=== PATIENT | male | born 1990 | race Caucasian/White ===

== ENCOUNTER 2017-02-17 17:53 | Emergency (ER) | payer OTHER ==
--- NOTE | 2017-02-17 19:26 | EDM.PDOC ---
ED HPI GENERAL MEDICAL PROBLEM - General Chief Complaint: Bite:Animal, Insect Stated Complaint: BITE LT MIDDLE FINGER Time Seen by Provider: 02/17/17 19:20 Source of Information: Reports: Patient History Limitations: Reports: No Limitations - History of Present Illness INITIAL COMMENTS - FREE TEXT/NARRATIVE: HISTORY AND PHYSICAL: History of present illness: [Pt comes to the ER complaining of pain and swelling to a lesion on left middle finger. First noticed 5 days ago and started as 3 small lesions which gradually increased to 1 confluent lesion. He thinks this is a spider bite and requests treatment. He denies any known insect or spider bite. Denies fever and chills. No abdominal pain, nausea, vomiting. No chest pain, shortness of breath or difficulty breathing. Has 1 small lesion to the dorsum of his left middle finger. Current presentation is consistent with how the original wound started. Review of systems: As per history of present illness and below otherwise all systems reviewed and negative. Past medical history: As per history of present illness and as reviewed below otherwise noncontributory. Surgical history: As per history of present illness and as reviewed below otherwise noncontributory. Social history: No reported history of drug or alcohol abuse. Family history: As per history of present illness and as reviewed below otherwise noncontributory. Physical exam: HEENT: Atraumatic, normocephalic. Extremities: L medial middle finger shows a dime-sized vesicular lesion on erythematous base with yellow to white colored drainage inside. One small pinpoint lesion to the DIP joint of the dorsum of his left middle finger. No drainage. Is mildly tender with palpation. Neurovascular unremarkable. Neuro: Awake, alert, oriented. Motor and sensory unremarkable throughout. Exam nonfocal. Impression: [lesion to L middle finger] Plan: [Bactrim DS twice a day 10 days. Establish care and follow-up with PCP in 5-7 days for reevaluation. Return precautions are reviewed. Patient agreement with today's plan.] Definitive disposition and diagnosis as appropriate pending reevaluation and review of above. Left 3-Middle finger Pain Score (Numeric/FACES): 3 - Related Data Allergies Allergy/AdvReac Type Severity Reaction Status Date / Time No Known Allergies Allergy Verified 02/17/17 18:20 Home Meds: Home Meds Sulfamethoxazole/Trimethoprim [Bactrim Ds Tablet] 1 each PO BID #20 tablet 07/31 /17 [Rx] Past Medical History - Past Surgical History GI Surgical History: Reports: Appendectomy, Hernia, Abdominal Social & Family History - Tobacco Use Smoking Status *Q: Current Every Day Smoker Years of Tobacco use: 7 Packs/Tins Daily: 0.5 - Caffeine Use Caffeine Use: Reports: None - Alcohol Use Days Per Week of Alcohol Use: 1 Number of Drinks Per Day: 2 Total Drinks Per Week: 2 - Recreational Drug Use Recreational Drug Use: No ED ROS GENERAL - Review of Systems Review Of Systems: ROS reveals no pertinent complaints other than HPI. ED EXAM, ANIMAL BITE - Physical Exam Exam: See Below Course - Vital Signs Last Recorded V/S: Last Vital Signs Temp 97.4 F 02/17/17 18:21 Pulse 62 02/17/17 19:37 Resp 18 02/17/17 19:37 BP 117/58 L 02/17/17 19:37 Pulse Ox 97 02/17/17 19:37 Departure - Departure Time of Disposition: 19:30 Disposition: Home, Self-Care 01 Condition: Good Clinical Impression: Abscess of left middle finger - Discharge Information Prescriptions: Sulfamethoxazole/Trimethoprim [Bactrim Ds Tablet] 1 each PO BID #20 tablet Instructions: Abscess Referrals: PCP,None [Primary Care Provider] - Forms: ED Department Discharge Additional Instructions: The following information is given to patients seen in the emergency department who are being discharged to home. This information is to outline your options for follow-up care. We provide all patients seen in our emergency department with a follow-up referral. The need for follow-up, as well as the timing and circumstances, are variable depending upon the specifics of your emergency department visit. If you don't have a primary care physician on staff, we will provide you with a referral. We always advise you to contact your personal physician following an emergency department visit to inform them of the circumstance of the visit and for follow-up with them and/or the need for any referrals to a consulting specialist. The emergency department will also refer you to a specialist when appropriate. This referral assures that you have the opportunity for follow-up care with a specialist. All of these measure are taken in an effort to provide you with optimal care, which includes your follow-up. Under all circumstances we always encourage you to contact your private physician who remains a resource for coordinating your care. When calling for follow-up care, please make the office aware that this follow-up is from your recent emergency room visit. If for any reason you are refused follow-up, please contact the [facility] emergency department at and asked to speak to the emergency department charge nurse. [facility] [address] [place] [id number] Establish with a local primary care provider at the clinic listed above. Take antibiotics as prescribed. Return to ER as needed as discussed.
[2017-02-17 19:39] VITALS: BP 117/58
== END 2017-02-17 19:37 | disposition home or self-care (01) ==
LOC: MW.ED 17:53
DX: L02.512 Cutaneous abscess of left hand (principal); F17.210 Nicotine dependence, cigarettes, uncomplicated; Z90.49 Acquired absence of other specified parts of digestive tract
CPT/HCPCS: 99282

== ENCOUNTER 2017-12-28 11:58 | Emergency (ER) | payer OTHER ==
[2017-12-28] MEDS ORDERED: Diphtheria,Pertussis(Acell),Tetanus Vaccine 0.5 ML Syringe IM ONE (12:13)
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
[2017-12-28 13:58] VITALS: BP 119/86
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
== END 2017-12-28 14:00 | disposition home or self-care (01) ==
LOC: MW.ED 11:58
DX: S02.32XA Fracture of orbital floor, left side, initial encounter for closed fracture (principal); S02.40DA Maxillary fracture, left side, initial encounter for closed fracture; Z23 Encounter for immunization; Y04.0XXA Assault by unarmed brawl or fight, initial encounter
CPT/HCPCS: 70450; 70450-26; 70486; 70486-26; 90471; 90715; 99284-25

== ENCOUNTER 2018-01-02 06:48 | Day surgery (SDC) | payer OTHER ==
[~2018-01-02 06:48] MED LIST: Ondansetron 4 MG Tab.DIS PO PRN; Ondansetron 4 MG/2 ML SDV IVPUSH PRN
--- NOTE | 2018-01-02 07:18 | PCM.PREANE ---
Preanesthetic Assessment - Anesthesia/Transfusion/Family Hx Anesthesia History: Prior Anesthesia Without Reaction Family History of Anesthesia Reaction: No Transfusion History: No Prior Transfusion(s) Intubation History: Unknown - Review of Systems General: No Symptoms Pulmonary: No Symptoms Cardiovascular: No Symptoms Gastrointestinal: No Symptoms Neurological: No Symptoms Other: Reports: None - Physical Assessment O2 Sat by Pulse Oximetry: 99 Respiratory Rate: 16 Vital Signs: Last Vital Signs Temp 36.1 C 01/02/18 07:03 Pulse 52 L 01/02/18 07:03 Resp 16 01/02/18 07:03 BP 113/71 01/02/18 07:03 Pulse Ox 99 01/02/18 07:03 Height: 1.78 m Weight: 77.111 kg ASA Class: 2 Mental Status: Alert & Oriented x3 Airway Class: Mallampati = 2 Dentition: Reports: Normal Dentition Thyro-Mental Finger Breadths: 3 Mouth Opening Finger Breadths: 2 ROM/Head Extension: Full Lungs: Clear to Auscultation, Normal Respiratory Effort Cardiovascular: Regular Rate, Regular Rhythm - Allergies Allergies/Adverse Reactions: Allergies Allergy/AdvReac Type Severity Reaction Status Date / Time No Known Allergies Allergy Verified 01/02/18 07:09 - Blood Blood Available: No - Anesthesia Plan Pre-Op Medication Ordered: None - Acknowledgements Anesthesia Type Planned: General Anesthesia Pt an Appropriate Candidate for the Planned Anesthesia: Yes Alternatives and Risks of Anesthesia Discussed w Pt/Guardian: Yes Pt/Guardian Understands and Agrees with Anesthesia Plan: Yes PreAnesthesia Questionnaire Musculoskeletal History: Reports: Fracture Other Musculoskeletal History: left wrist Neurological History: Reports: Concussion - Past Surgical History Head Surgeries/Procedures: Reports: None GI Surgical History: Reports: Appendectomy, Hernia, Inguinal (bilateral) Musculoskeletal Surgical History: Reports: ORIF Other Musculoskeletal Surgeries/Procedures:: ORIF left wrist- has hardware - SUBSTANCE USE Smoking Status *Q: Current Every Day Smoker (down to 1/2 ppd) Tobacco Use Within Last Twelve Months: Cigarettes Recreational Drug Use History: No - HOME MEDS Home Medications: Home Meds Cephalexin [Keflex] 500 mg PO BID 12/31/17 [History] - CURRENT (IN HOUSE) MEDS Current Meds: Current Medications Hydrocodone Bitart/Acetaminophen ([place] 325-5 Mg) 1 tab PO Q4H PRN PRN Reason: Pain Bupivacaine HCl/Epinephrine Bitart (Marcaine 0.25%/Epinephrine 1:200,000) 10 ml INJECT ONETIME ONE Stop: 01/02/18 08:01 Cephalexin (Keflex) 500 mg PO Q6HR [facility] Cefazolin Sodium/Dextrose 2 gm (/ Premix) 50 mls @ 100 mls/hr IV ONETIME ONE Stop: 01/02/18 08:29 Lactated Ringer's (Ringers, Lactated) 1,000 mls @ 125 mls/hr IV ASDIRECTED [facility] Last Admin: 01/02/18 07:09 Dose: 125 mls/hr Ibuprofen (Motrin) 800 mg PO Q8H PRN PRN Reason: Pain Morphine Sulfate (Morphine) 2 mg IVPUSH Q2H PRN PRN Reason: Pain Ondansetron HCl (Zofran Odt) 4 mg PO Q6H PRN PRN Reason: Nausea/Vomiting Ondansetron HCl (Zofran) 4 mg IVPUSH Q6H PRN PRN Reason: Nausea/Vomiting
[2018-01-02] MEDS ORDERED: Midazolam 1 MG/ML 2 ML SDV ONE (07:21)
[2018-01-02] MEDS ORDERED: Lidocaine 2% 5 ML SDV ONE (07:21)
[2018-01-02] MEDS ORDERED: Propofol 200 MG/20 ML SDV ONE (07:21)
[2018-01-02] MEDS ORDERED: fentaNYL 250 MCG/5 ML SDV ONE (07:21)
[2018-01-02] MEDS ORDERED: fentaNYL 100 MCG/2 ML SDV ONE (07:21)
[2018-01-02] MEDS ORDERED: Dexamethasone/Tobramycin 0.1-0.3% Ophth Oint 3.5 GM Tube ONE (07:31)
[2018-01-02] MEDS ORDERED: HYDROmorphone 2 MG/ML SDV ONE (07:37)
[2018-01-02] MEDS ORDERED: Bupivacaine 25%/EPINEPHrine/PF 30 ML ONE (07:50)
[2018-01-02] MEDS ORDERED: ceFAZolin 2 GM in Premix Bag 1 BAG IV ONE (08:00)
[2018-01-02] MEDS ORDERED: Bupivacaine 0.25%/EPINEPHrine 1:200,000 10 ML SDV INJECT ONE (08:00)
[2018-01-02] MEDS ORDERED: Lactated Ringers 1,000 ML IV SCH (08:00)
[2018-01-02] MEDS ORDERED: Glycopyrrolate 0.2 MG/ML SDV ONE (09:05)
[2018-01-02] MEDS ORDERED: Ondansetron 4 MG/2 ML SDV ONE (09:05)
[2018-01-02] MEDS ORDERED: Sugammadex Sodium 200 MG/2 ML VIAL ONE ×2 (09:08)
[2018-01-02] MEDS ORDERED: HYDROmorphone 2 MG/ML SDV IVPUSH ONE (09:30)
[2018-01-02] MEDS: fentaNYL 100 MCG/2 ML SDV IVPUSH PRN ×2 (10:11→10:17)
--- NOTE | 2018-01-02 10:37 | PCM.POSTAN ---
POST ANESTHESIA ASSESSMENT - MENTAL STATUS Mental Status: Alert, Oriented - RESPIRATORY Respiratory Status: Respiratory Rate WNL, Airway Patent, O2 Saturation Stable - CARDIOVASCULAR CV Status: Pulse Rate WNL, Blood Pressure Stable - GASTROINTESTINAL GI Status: No Symptoms - PAIN Pain Score: 2 - POST OP HYDRATION Hydration Status: Adequate & Stable
[2018-01-02] MEDS: Morphine 2 MG/ML Syringe IVPUSH PRN ×4 (10:52→20:40)
[2018-01-02] MEDS ORDERED: Ibuprofen 800 MG Tab PO PRN (14:00)
[2018-01-02] MEDS: Acetaminophen/HYDROcodone 325-5 MG Tab PO PRN ×2 (14:51→22:48)
[2018-01-02] MEDS: Cephalexin 500 MG Cap PO SCH ×2 (14:51→18:29)
--- NOTE | 2018-01-02 15:54 | PCM.OPNOTE ---
- General Post-Op/Procedure Note Date of Surgery/Procedure: 01/02/18 Operative Procedure(s): plate fixation of left orbital floor fracture Pre Op Diagnosis: left orbital floor blowout fracture - closed Post-Op Diagnosis: Same Anesthesia Technique: General ET Tube, Local Primary Surgeon: Cleo Devine Complications: None Condition: Good Free Text/Narrative:: Intake & Output 01/01/18 01/02/18 01/02/18 23:59 07:59 15:59 Intake Total 1100 Balance 1100
--- NOTE | 2018-01-02 15:55 | PCM.SN ---
- Free Text/Narrative Note: Recheck on the floor after surgery this am. Tolerating diet and ambulating. Having some pain and would like morphine. Will see how he does overnight and getting pain under control. Anticipate home tomorrow.
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
[2018-01-03] MEDS: Cephalexin 500 MG Cap PO SCH ×2 (00:13→05:08)
[2018-01-03] MEDS: Morphine 2 MG/ML Syringe IVPUSH PRN (03:32)
[2018-01-03] MEDS: Acetaminophen/HYDROcodone 325-5 MG Tab PO PRN ×2 (05:08→09:30)
--- NOTE | 2018-01-03 08:12 | PCM.PN ---
- General Info Date of Service: 01/03/18 Admission Dx/Problem (Free Text): post op day 1 left orbital floor fracture. Subjective Update: doing well with pain. Some blurring of vision but clearing with drops. Minimal swelling for what was done. Functional Status: Reports: Pain Controlled, Tolerating Diet, Ambulating. Denies: New Symptoms - Review of Systems General: Reports: No Symptoms HEENT: Reports: Eye Pain (as expected) Pulmonary: Reports: No Symptoms Cardiovascular: Reports: No Symptoms Skin: Reports: Bruising (as expected) Psychiatric: Reports: No Symptoms - Patient Data Vitals - Most Recent: Last Vital Signs Temp 98.4 F 01/03/18 04:00 Pulse 62 01/03/18 04:00 Resp 20 01/03/18 04:00 BP 118/55 L 01/03/18 04:00 Pulse Ox 99 01/03/18 00:00 Weight - Most Recent: 170 lb I&O - Last 24 Hours: Intake & Output 01/02/18 01/03/18 01/03/18 23:59 07:59 15:59 Intake Total 1400 1000 Output Total 0 0 Balance 1400 1000 Med Orders - Current: Current Medications Hydrocodone Bitart/Acetaminophen ([place] 325-5 Mg) 1 tab PO Q4H PRN PRN Reason: Pain Last Admin: 01/03/18 05:08 Dose: 2 tab Cephalexin (Keflex) 500 mg PO Q6HR [facility] Last Admin: 01/03/18 05:08 Dose: 500 mg Fentanyl (Sublimaze) 50 mcg IVPUSH Q5M PRN PRN Reason: Pain (severe 7-10) Stop: 01/03/18 09:30 Last Admin: 01/02/18 10:17 Dose: 50 mcg Lactated Ringer's (Ringers, Lactated) 1,000 mls @ 125 mls/hr IV ASDIRECTED DEB Last Admin: 01/02/18 07:09 Dose: 125 mls/hr Ibuprofen (Motrin) 800 mg PO Q8H PRN PRN Reason: Pain Morphine Sulfate (Morphine) 2 mg IVPUSH Q2H PRN PRN Reason: Pain Last Admin: 01/03/18 03:32 Dose: 2 mg Ondansetron HCl (Zofran Odt) 4 mg PO Q6H PRN PRN Reason: Nausea/Vomiting Ondansetron HCl (Zofran) 4 mg IVPUSH Q6H PRN PRN Reason: Nausea/Vomiting Discontinued Medications Bupivacaine HCl/Epinephrine Bitart ([place] 0.25%/Epinephrine 1:200,000) 10 ml INJECT ONETIME ONE Stop: 01/02/18 08:01 Last Admin: 01/02/18 11:31 Dose: Not Given Fentanyl (Sublimaze) Confirm Administered Dose 100 mcg .ROUTE .STK-MED ONE Stop: 01/02/18 07:22 Fentanyl (Sublimaze) Confirm Administered Dose 250 mcg .ROUTE .STK-MED ONE Stop: 01/02/18 07:22 Glycopyrrolate (Robinul) Confirm Administered Dose 0.2 mg .ROUTE .STK-MED ONE Stop: 01/02/18 09:06 Hydromorphone HCl (Dilaudid) Confirm Administered Dose 2 mg .ROUTE .STK-MED ONE Stop: 01/02/18 07:38 Hydromorphone HCl (Dilaudid) 0 mg IVPUSH ONETIME ONE Stop: 01/02/18 09:31 Last Admin: 01/02/18 11:31 Dose: Not Given Cefazolin Sodium/Dextrose 2 gm (/ Premix) 50 mls @ 100 mls/hr IV ONETIME ONE Stop: 01/02/18 08:29 Last Admin: 01/02/18 11:30 Dose: Not Given Bupivacaine HCl/Epinephrine Bitart (Sensorc Mpf 0.25%-Epi [id number]) Confirm Administered Dose 30 mls @ as directed .ROUTE .STK-MED ONE Stop: 01/02/18 07:51 Lidocaine (Xylocaine-Mpf 2%) Confirm Administered Dose 10 ml .ROUTE .STK-MED ONE Stop: 01/02/18 07:22 Midazolam HCl (Versed 1 Mg/Ml) Confirm Administered Dose 2 mg .ROUTE .STK-MED ONE Stop: 01/02/18 07:22 Ondansetron HCl (Zofran) Confirm Administered Dose 8 mg .ROUTE .STK-MED ONE Stop: 01/02/18 09:06 Propofol (Diprivan 20 Ml) Confirm Administered Dose 400 mg .ROUTE .STK-MED ONE Stop: 01/02/18 07:22 Sugammadex Sodium ([place]) Confirm Administered Dose 200 mg .ROUTE .STK-MED ONE Stop: 01/02/18 09:09 Sugammadex Sodium ([place]) Confirm Administered Dose 200 mg .ROUTE .STK-MED ONE Stop: 01/02/18 09:09 Tobramycin/Dexamethasone (Tobradex Ophth Oint) Confirm Administered Dose 3.5 gm .ROUTE .STK-MED ONE Stop: 01/02/18 07:32 - Exam General: Alert, Oriented, Cooperative HEENT: Pupils Reactive, EOMI (no entrapment of musculature. Swelling with superior displacement of orbit as expected currently - more than yesterday as expected with swelling. ) Lungs: Normal Respiratory Effort Skin: Warm, Dry Wound/Incisions: Healing Well, No Drainage Neurological: No New Focal Deficit Psy/Mental Status: Alert, Normal Affect, Normal Mood - Problem List & Annotations (1) Orbital floor fracture SNOMED Code(s): 836878025 Code(s): S02.30XA - FRACTURE OF ORBITAL FLOOR, UNSPECIFIED SIDE, INIT Status: Acute Current Visit: No Qualifiers: Encounter type: initial encounter Fracture type: closed Laterality: left Qualified Code(s): S02.32XA - Fracture of orbital floor, left side, initial encounter for closed fracture - Problem List Review Problem List Initiated/Reviewed/Updated: Yes - My Orders Last 24 Hours: My Active Orders 01/02/18 08:00 Patient Status [ADT] Routine Acetaminophen/HYDROcodone [[place] 325-5 MG] 1 tab PO Q4H PRN Lactated Ringers [Ringers, Lactated] 1,000 ml IV ASDIRECTED 01/02/18 11:00 Morphine 2 mg IVPUSH Q2H PRN 01/02/18 14:00 Cephalexin [Keflex] 500 mg PO Q6HR Ibuprofen [Motrin] 800 mg PO Q8H PRN - Plan Plan:: home today on PO oxycodone. continue ibuprofen and tylenol tobradex for eye irritation saline drops as needed follow up in about 10 days, call sooner with any issues or concerns.
[2018-01-03 09:36] VITALS: BP 116/53
== END 2018-01-03 10:50 | disposition home or self-care (01) ==
LOC: MW.SDS 06:48 → MW.MS 10:03 → MW.SDS 01-03 10:50
PROVIDERS: ATTEND Plastic Surgery
DX: S02.32XA Fracture of orbital floor, left side, initial encounter for closed fracture (principal); F17.210 Nicotine dependence, cigarettes, uncomplicated; Z79.2 Long term (current) use of antibiotics; X58.XXXA Exposure to other specified factors, initial encounter
CPT/HCPCS: 21386; A9270; C1713; J1170; J2250; J2270; J2405; J3010; J3490; J7120; J2704

== ENCOUNTER 2018-11-27 10:48 | Day surgery (SDC) | payer OTHER ==
[~2018-11-27 10:48] MED LIST changes: +Acetaminophen/HYDROcodone 325-5 MG Tab PO PRN; +Bupivacaine 0.25%/EPINEPHrine 1:200,000 10 ML SDV INJECT ONE; +Lactated Ringers 1,000 ML IV SCH; +Midazolam 1 MG/ML 2 ML SDV ONE; -Ondansetron 4 MG Tab.DIS PO PRN; -Ondansetron 4 MG/2 ML SDV IVPUSH PRN; +Propofol 200 MG/20 ML SDV ONE; +ceFAZolin 2 GM in Premix Bag 1 BAG IV ONE; +fentaNYL 100 MCG/2 ML SDV ONE
--- NOTE | 2018-11-27 11:10 | PCM.PREANE ---
Preanesthetic Assessment - Anesthesia/Transfusion/Family Hx Anesthesia History: Prior Anesthesia Without Reaction Family History of Anesthesia Reaction: No Transfusion History: No Prior Transfusion(s) Intubation History: Unknown - Review of Systems General: No Symptoms Pulmonary: No Symptoms Cardiovascular: No Symptoms Gastrointestinal: No Symptoms Neurological: No Symptoms Other: Reports: None - Physical Assessment Height: 1.75 m Weight: 78.925 kg ASA Class: 2 Mental Status: Alert & Oriented x3 Airway Class: Mallampati = 1 Dentition: Reports: Normal Dentition Thyro-Mental Finger Breadths: 3 Mouth Opening Finger Breadths: 3 ROM/Head Extension: Full Lungs: Clear to Auscultation, Normal Respiratory Effort Cardiovascular: Regular Rate, Regular Rhythm - Allergies Allergies/Adverse Reactions: Allergies Allergy/AdvReac Type Severity Reaction Status Date / Time No Known Allergies Allergy Verified 11/24/18 11:26 - Blood Blood Available: No - Anesthesia Plan Pre-Op Medication Ordered: None - Acknowledgements Anesthesia Type Planned: MAC Pt an Appropriate Candidate for the Planned Anesthesia: Yes Alternatives and Risks of Anesthesia Discussed w Pt/Guardian: Yes Pt/Guardian Understands and Agrees with Anesthesia Plan: Yes PreAnesthesia Questionnaire HEENT History: Reports: Other (See Below) Other HEENT History: hx left orbital fx and jaw fx Cardiovascular History: Reports: None Respiratory History: Reports: None Gastrointestinal History: Reports: Hemorrhoids Genitourinary History: Reports: None Musculoskeletal History: Reports: Fracture Other Musculoskeletal History: left wrist, s/p ORIF left orbital fx 9 months ago Neurological History: Reports: Concussion Psychiatric History: Reports: None Endocrine/Metabolic History: Reports: None Hematologic History: Reports: None Immunologic History: Reports: None Oncologic (Cancer) History: Reports: None Dermatologic History: Reports: None - Past Surgical History Head Surgeries/Procedures: Reports: None HEENT Surgical History: Reports: Other (See Below) Other HEENT Surgeries/Procedures: ORIf left orbital fx Cardiovascular Surgical History: Reports: None Respiratory Surgical History: Reports: None GI Surgical History: Reports: Appendectomy, Hernia, Inguinal Other GI Surgeries/Procedures: bob inguinal hernia repair Male Surgical History: Reports: None Endocrine Surgical History: Reports: None Neurological Surgical History: Reports: None Musculoskeletal Surgical History: Reports: ORIF Other Musculoskeletal Surgeries/Procedures:: ORIF left wrist- has hardware, ORIF left orbital fx with hardware Oncologic Surgical History: Reports: None Dermatological Surgical History: Reports: None - SUBSTANCE USE Smoking Status *Q: Current Every Day Smoker (1/2 ppd) Tobacco Use Within Last Twelve Months: Cigarettes Recreational Drug Use History: No - HOME MEDS Home Medications: Home Meds . [No Known Home Meds] 11/24/18 [History] - CURRENT (IN HOUSE) MEDS Current Meds: Current Medications Hydrocodone Bitart/Acetaminophen ([place] 325-5 Mg) 1 tab PO Q4H PRN PRN Reason: Pain Lactated Ringer's (Ringers, Lactated) 1,000 mls @ 125 mls/hr IV ASDIRECTED DEB Tetracaine HCl (Tetracaine 0.5% Steri-Unit Elke) 2 ml EYELF ASDIRECTED ONE Stop: 12/02/18 13:01 Discontinued Medications Bupivacaine HCl/Epinephrine Bitart ([place] 0.25%/Epinephrine 1:200,000) 10 ml INJECT ONETIME ONE Stop: 11/27/18 08:01 Fentanyl (Sublimaze) Confirm Administered Dose 100 mcg .ROUTE .STK-MED ONE Stop: 11/27/18 10:48 Cefazolin Sodium/Dextrose 2 gm (/ Premix) 50 mls @ 100 mls/hr IV ONETIME ONE Stop: 11/27/18 08:29 Midazolam HCl (Versed 1 Mg/Ml) Confirm Administered Dose 2 mg .ROUTE .STK-MED ONE Stop: 11/27/18 10:48 Propofol (Diprivan 20 Ml) Confirm Administered Dose 200 mg .ROUTE .STK-MED ONE Stop: 11/27/18 10:48
[2018-11-27] MEDS ORDERED: Bupivacaine 25%/EPINEPHrine/PF 30 ML ONE (11:35)
[2018-11-27] MEDS ORDERED: Dexamethasone/Tobramycin 0.1-0.3% Ophth Oint 3.5 GM Tube ONE (12:59)
[2018-11-27] MEDS ORDERED: Tetracaine HCl/PF 0.5% 4 ML Bottle ONE (12:59)
[2018-11-27 13:02] VITALS: BP 106/58
--- NOTE | 2018-11-27 13:09 | PCM.POSTAN ---
POST ANESTHESIA ASSESSMENT - MENTAL STATUS Mental Status: Alert, Oriented - RESPIRATORY Respiratory Status: Respiratory Rate WNL, Airway Patent, O2 Saturation Stable - CARDIOVASCULAR CV Status: Pulse Rate WNL, Blood Pressure Stable - GASTROINTESTINAL GI Status: No Symptoms - POST OP HYDRATION Hydration Status: Adequate & Stable
--- NOTE | 2018-11-27 13:11 | PCM48HPAN ---
Post Anesthesia Note - EVALUATION WITHIN 48HRS OF ANESTHETIC Vital Signs in Normal Range: Yes Patient Participated in Evaluation: Yes Respiratory Function Stable: Yes Airway Patent: Yes Cardiovascular Function Stable: Yes Hydration Status Stable: Yes Pain Control Satisfactory: Yes Nausea and Vomiting Control Satisfactory: Yes Mental Status Recovered: Yes Resp Rate: 16
--- NOTE | 2018-11-27 15:15 | PCM.OPNOTE ---
- General Post-Op/Procedure Note Date of Surgery/Procedure: 11/27/18 Operative Procedure(s): left lower eyelid ectropion repair - tarsal strip Pre Op Diagnosis: left lower eyelid ectropion Post-Op Diagnosis: Same Anesthesia Technique: Local, MAC Primary Surgeon: Cleo Devine Granulator Machine Operator: Sandra Perez Complications: None Condition: Good
[2018-12-02] MEDS ORDERED: Tetracaine HCl/PF 0.5% 4 ML Bottle EYELF ONE (13:00)
== END 2018-11-27 13:45 | disposition home or self-care (01) ==
LOC: MW.SDS 10:48
PROVIDERS: ATTEND Plastic Surgery
DX: S02.32XS Fracture of orbital floor, left side, sequela (principal); L64.9 Androgenic alopecia, unspecified; F17.210 Nicotine dependence, cigarettes, uncomplicated
CPT/HCPCS: 67917; A9270; J2250; J2704; J3010; J7120; 00103